=== PATIENT | female | born 1965 | race Asian ===

== ENCOUNTER 2024-06-29 10:08 | Emergency (ER) | payer BC ==
[2024-06-29 10:27] VITALS: BMI 22.1
[2024-06-29 10:49] LABS: BASO % 0.8 % (0-2.0); EOS % 4.8 % (0-4.5); HEMATOCRIT 39.3 % (32.4-45.2); HEMOGLOBIN 13.7 GM/dL (10.7-15.3); LYMPH % 39.8 % (8-40); MCHC 34.7 g/dl (32.0-36.0); MEAN CELL VOLUME 95.2 fl (80-96); NEUT % 46.6 % (42.8-82.8); PLATELET COUNT 274 10^3/uL (134-434); RBC 4.13 M/mm3 (3.60-5.2); RDW 12.6 % (11.6-15.6); WHITE BLOOD COUNT 5.5 K/mm3 (4.0-10.0)
[2024-06-29 11:11] LABS: BLOOD UREA NITROGEN 10.8 mg/dL (7-18); CALCIUM 9.3 mg/dL (8.5-10.1); INR 0.87 (0.83-1.09)
[2024-06-29 11:12] LABS: ALBUMIN 4.2 g/dl (3.4-5.0)
[2024-06-29 11:14] LABS: ACTIVATED PTT 30.3 SECONDS (25.2-36.5)
[2024-06-29 11:15] LABS: CREATININE 0.8 mg/dL (0.55-1.3)
[2024-06-29 11:17] LABS: BILIRUBIN,TOTAL 0.4 mg/dL (0.2-1); TOT PROT 7.9 g/dl (6.4-8.2)
[2024-06-29 11:20] LABS: N-TERMINAL BNP 11.6 pg/ml (5-125)
[2024-06-29 15:26] VITALS: BP 116/64; PULSE 78; RESP 20; TEMP 98
[2024-07-01] MEDS ORDERED: PIPERACILLIN/TAZOB 4.5 GM 4.5 GM/100 ML BAG IVPB ONE (23:17)
== END 2024-06-29 13:15 | disposition home or self-care (01) ==
LOC: JER 10:08
DX: U07.1 COVID-19 (principal); R06.02 Shortness of breath; R00.2 Palpitations
CPT/HCPCS: 36415; 71275-TC; 80053; 83880; 84484; 85025; 85610; 85730; 93005; 93010; 99285-25; Q9967

== ENCOUNTER 2025-01-26 15:04 | Observation (INO) | payer BC ==
[2025-01-26] MEDS ORDERED: ONDANSETRON 4 MG/2 ML VIAL ONE (15:18)
[2025-01-26] MEDS: SODIUM CHLORIDE 1,000 ML IV STA ×2 (15:27→17:43)
[2025-01-26 15:50] VITALS: BMI 22.6
[2025-01-26 15:59] LABS: EOS % 5.5 % (0-4.5); HEMATOCRIT 37.2 % (32.4-45.2); HEMOGLOBIN 12.6 GM/dL (10.7-15.3); MCH 32.9 pg (25.7-33.7); MCHC 33.9 g/dl (32.0-36.0); MEAN CELL VOLUME 97.1 fl (80-96); MEAN PLT VOLUME 7.4 fl (7.5-11.1); MONO % 9.6 % (3.8-10.2); NEUT % 41.9 % (42.8-82.8); PLATELET COUNT 242 10^3/uL (134-434); RBC 3.84 M/mm3 (3.60-5.2); RDW 12.5 % (11.6-15.6); WHITE BLOOD COUNT 6.2 K/mm3 (4.0-10.0)
[2025-01-26 16:13] LABS: CHLORIDE 106 mmol/L (98-107); POTASSIUM 3.5 mmol/L (3.5-5.1); SODIUM 139 mmol/L (136-145)
[2025-01-26 16:15] LABS: CALCIUM 8.9 mg/dL (8.5-10.1)
[2025-01-26 16:16] LABS: ALBUMIN 3.6 g/dl (3.4-5.0); ANION GAP 7 mmol/L (4-13); BLOOD UREA NITROGEN 12.8 mg/dL (7-18); CO2 26 mmol/L (21-32); GLUCOSE,RANDOM 195 mg/dL (74-106)
[2025-01-26 16:19] LABS: CREATININE 0.8 mg/dL (0.55-1.3); SGOT/AST 14 U/L (15-37); SGPT/ALT 20 U/L (13-61)
[2025-01-26 16:21] LABS: BILIRUBIN,TOTAL 0.6 mg/dL (0.2-1); TOT PROT 6.6 g/dl (6.4-8.2)
[2025-01-26 16:22] LABS: ALK PHOS 59 U/L (45-117)
[2025-01-26 16:33] LABS: LACTIC ACID 4.8 mmol/L (0.4-2.0)
[2025-01-26] MEDS: ONDANSETRON 4 MG/2 ML VIAL IVPUSH ONE (18:43)
[2025-01-26] MEDS ORDERED: METOCLOPRAMIDE HCL INJECTION 10 MG/2 ML VIAL ONE (20:09)
[2025-01-26] MEDS: METOCLOPRAMIDE HCL INJECTION 10 MG/2 ML VIAL IVPB ONE (20:14)
[2025-01-26 20:30] LABS: EPI CELLS 3 /uL (0-25.1); HYALINE CASTS 0 /uL (0-3.1); PH,URINE 6.5 (5.0-8.0); URINE APPEARANCE CLEAR; URINE BACTERIA 13 /uL (0-1359); URINE BILIRUBIN NEGATIVE (NEGATIVE); URINE COLOR YELLOW; URINE GLUCOSE (UA) NEGATIVE (NEGATIVE); URINE KETONE NEGATIVE (NEGATIVE); URINE LEUK ESTERASE NEGATIVE (NEGATIVE); URINE NITRITE NEGATIVE (NEGATIVE); URINE PROTEIN NEGATIVE (NEGATIVE); URINE RBC 10 /uL (0-23.9); URINE UROBILINOGEN 0.2 mg/dL (0.2-1.0); URINE WBC 2 /uL (0-25.8)
[2025-01-26 20:33] LABS: COCAINE, UR NEGATIVE (NEGATIVE); URINE BARBITURATES NEGATIVE (NEGATIVE); URINE BENZODIAZEPINES NEGATIVE (NEGATIVE)
[2025-01-26 20:34] LABS: METHADONE, UR NEGATIVE (NEGATIVE); OPIATES, URI NEGATIVE (NEGATIVE); PHENCYCLIDINE,URINE NEGATIVE (NEGATIVE); URINE AMPHETAMINES NEGATIVE (NEGATIVE)
[2025-01-26 21:04] LABS: INR 0.97 (0.83-1.09); PROTHROMBIN TIME (PATIENT) 10.7 SEC (9.7-13.0)
[2025-01-26 21:07] LABS: ACTIVATED PTT 27.5 SECONDS (25.2-36.5)
[2025-01-26 22:15] LABS: HIV INTERPRETATION NEGATIVE (NEGATIVE)
[2025-01-26] MEDS ORDERED: ASPIRIN 81 MG CHEWABLE TABLETS ONE (22:26)
[2025-01-26] MEDS: ASPIRIN 81 MG CHEWABLE TABLETS PO ONE (22:26)
[2025-01-27] MEDS ORDERED: MECLIZINE HCL 25 MG TABLET (FP) PO PRN (04:41)
[2025-01-27] MEDS: ENOXAPARIN NA (PORCINE) 40 MG/0.4 ML DISP.SYRIN SQ SCH (09:11)
[2025-01-27] MEDS: ASPIRIN 81 MG CHEWABLE TABLETS PO SCH (09:11)
[2025-01-27 09:47] LABS: EOS % 8.5 % (0-4.5); HEMOGLOBIN 12.7 GM/dL (10.7-15.3); LYMPH % 35.9 % (8-40); MCH 32.7 pg (25.7-33.7); MCHC 34.4 g/dl (32.0-36.0); MEAN CELL VOLUME 95.2 fl (80-96); MEAN PLT VOLUME 7.3 fl (7.5-11.1); MONO % 10.4 % (3.8-10.2); NEUT % 44.2 % (42.8-82.8); PLATELET COUNT 243 10^3/uL (134-434); RBC 3.89 M/mm3 (3.60-5.2); RDW 12.8 % (11.6-15.6); WHITE BLOOD COUNT 5.2 K/mm3 (4.0-10.0)
[2025-01-27 10:11] LABS: POTASSIUM 3.8 mmol/L (3.5-5.1)
[2025-01-27 10:12] LABS: CALCIUM 8.8 mg/dL (8.5-10.1)
[2025-01-27 10:13] LABS: BLOOD UREA NITROGEN 5.9 mg/dL (7-18)
[2025-01-27 10:16] LABS: CREATININE 0.7 mg/dL (0.55-1.3)
[2025-01-27 12:11] VITALS: BP 118/75; PULSE 78; RESP 19; TEMP 97.2
[2025-01-27] MEDS ORDERED: ATORVASTATIN CA 80 MG TABLET (FP) PO SCH (22:00)
== END 2025-01-27 13:24 | disposition home or self-care (01) ==
LOC: JER 15:04 → UNDOADMOB 21:29 → JERBED 21:29 → INTOOBSV 21:29 → JERBED 23:49 → J4S 23:49 → JERBED 01-27 10:07
PROVIDERS: ADMIT Student in an Organized Health Care Education/Training Program; ATTEND Internal Medicine
PROC: 3E023GC Introduction of Other Therapeutic Substance into Muscle, Percutaneous Approach (ICD-10-PCS; principal; 2025-01-27)
PROC: 3E033GC Introduction of Other Therapeutic Substance into Peripheral Vein, Percutaneous Approach (ICD-10-PCS; 2025-01-27)
PROC: 3E0337Z Introduction of Electrolytic and Water Balance Substance into Peripheral Vein, Percutaneous Approach (ICD-10-PCS; 2025-01-27)
DX: R47.1 Dysarthria and anarthria (principal); R73.03 Prediabetes; Z86.16 Personal history of COVID-19; Z86.711 Personal history of pulmonary embolism
CPT/HCPCS: 0241U-QW; 36415; 70450-TC; 70496-TC; 70498-TC; 70551-TC; 80048; 80053; 80307; 81003; 82962; 83036; 83605; 84443; 84484; 85025; 85610; 85730; 86140; 86803; 87389; 93306-TC; 99285-25; G0378; Q9967